=== PATIENT | female | born 1960 ===

== ENCOUNTER 2021-01-31 19:22 | Emergency (ER) | payer OTHER ==
[~2021-01-31] VITALS: Ht 152.4 cm; Wt 60.8 kg
[2021-02-01 00:30] VITALS: BP 125/43
== END 2021-02-01 00:30 | disposition home or self-care (01) ==
LOC: ER 19:22
DX: S62.356A Nondisplaced fracture of shaft of fifth metacarpal bone, right hand, initial encounter for closed fracture (principal); X58.XXXA Exposure to other specified factors, initial encounter; Y93.89 Activity, other specified; Y92.89 Other specified places as the place of occurrence of the external cause; Y99.0 Civilian activity done for income or pay
CPT/HCPCS: 29125; 73130